=== PATIENT | male | born 1955 | race Caucasian/White ===

== ENCOUNTER 2018-05-27 16:45 | Emergency (ER) | payer MEDICARE ==
[~2018-05-27] VITALS: Ht 170.1 cm; Wt 77.1 kg
--- NOTE | ~2018-05-27 | EKG ---
[place], [place] ELECTROCARDIOGRAM REPORT NAME: JOSE DE LEON UNIT #: [id number] ROOM: DOCTOR: DEBBIE DRAFT REPORT BIRTHDATE: [birth year] [facility] Test Date: 2018-05-27 Test Time: 16:49:56 Pat Name: JOSE DE LEON Department: Room: Gender: [employer]: : [id number] Requested By: ARLEY RANGEL Order Number: [id number] Reading MD: Richie Srinivasan Measurements Intervals [place] Rate: 83 P: 59 OK: 156 QRS: 38 QRSD: 91 T: 57 QT: 369 QTc: 434 Interpretive Statements Sinus rhythm No previous ECG available for comparison Electronically Signed On 05-28-2018 11:00:25 PDT by Richie Srinivasan CM:EKGRPT:ELECTROCARDIOGRAM REPORT [id number] ARLEY LWEIS DRAFT REPORT ARLEY RANGEL M.D.
[~2018-05-27 16:45] MED LIST: ANUSOL-HC25 MG RC; BP MED; CEFADROXIL500 M1 PO; CIPRO500 MG PO; DILANTIN100 MG PO; FLEXERIL5 MG PO; Fioricet 325 MG1 TAB PO; IBUPROFEN 30 M800 MG PO; MOTRIN800 MG PO; PEN-VEE K500 MG PO; TRAMADOL HCL50 MG PO; TYLENOL W/CODEI1 TA2 PO; [UNRECOGNIZED DRUG - OTHER] T
[2018-05-27 17:01] LABS: HEMATOCRIT 38.8 % (42.0-52.0); HEMOGLOBIN 12.5 g/dl (14.0-18.0); MEAN CELL VOLUME 98.5 fl (80.0-94.0); MEAN CORPUSCULAR HGB 31.7 pg (27.0-31.0); MEAN CORPUSCULAR HGB CONC 32.2 g/dl (33.0-37.0); MEAN PLATELET VOLUME 8.7 fl (9.6-12.3); PLATELET COUNT AUTOMATED 500 10*3/uL (130-400); RED BLOOD COUNT 3.94 10*6/uL (4.50-5.90); RED CELL DISTRI WIDTH 13.6 % (0-14.5); WHITE BLOOD COUNT 13.3 10*3/uL (4.8-10.8)
[2018-05-27 17:11] LABS: ACT PARTIAL THROMBO TIME 24.4 SECONDS (20.8-31.5); INTERNATIONAL NORM RATIO 0.9 (2.0-3.5)
[2018-05-27 17:18] LABS: ALBUMIN 3.5 gm/dl (3.1-4.5); ALKALINE PHOSPHATASE 74 U/L (45-117); BUN 20 mg/dl (7-24); CHLORIDE 107 mmol/L (98-107); POTASSIUM 4.1 mmol/L (3.5-5.1); SGOT/AST 20 IU/L (3-35); SGPT/ALT 25 U/L (12-78); SODIUM 139 mmol/L (136-145); TOTAL PROTEIN 8.5 gm/dL (6.4-8.2)
[2018-05-27 17:20] LABS: TROPONIN I < 0.015 ng/ml (<0.045)
[2018-05-27 17:23] LABS: TOTAL CELLS COUNTED 100 #CELLS
[2018-05-27 17:24] LABS: PLATELET SUFFICIENCY HIGH (NORMAL)
[2018-05-27] MEDS ORDERED: DILANTIN100 MG PO (19:10)
== END 2018-05-27 19:25 | disposition home or self-care (01) ==
LOC: ED 16:45
PROVIDERS: Emergency Medicine
DX: G40.909 Epilepsy, unspecified, not intractable, without status epilepticus (principal); R55 Syncope and collapse; Z91.041 Radiographic dye allergy status; Z79.899 Other long term (current) drug therapy

== ENCOUNTER 2020-10-13 06:24 | Emergency (ER) | payer OTHER ==
[2020-10-13] VITALS (7 sets, daily range): BP systolic 122–152; BP diastolic 66–84
[2020-10-13 06:46] LABS: ARTERIAL BLOOD GAS PO2 169.4 (80-90)
[2020-10-13 06:49] LABS: INTERNATIONAL NORM RATIO 1.2 (2.0-3.5); MEAN CELL VOLUME 111.8 fl (80.0-94.0); MEAN CORPUSCULAR HGB 29.4 pg (27.0-31.0); MEAN CORPUSCULAR HGB CONC 26.3 g/dl (33.0-37.0); MEAN PLATELET VOLUME 9.4 fl (9.6-12.3); NUCLEATED RED BLOOD CELL 2.9 % (0.0-0.0); PLATELET COUNT AUTOMATED 646 10*3/uL (130-400); RED BLOOD COUNT 1.02 10*6/uL (4.50-5.90); RED CELL DISTRI WIDTH 16.1 % (0-14.5); WHITE BLOOD COUNT 34.7 10*3/uL (4.8-10.8)
[2020-10-13 06:52] LABS: ABG BASE EXCESS -25.7 mmol/L (-2.0-2.0); ARTERIAL BLOOD GAS PH 6.724 (7.35-7.45)
[2020-10-13 06:53] LABS: ALBUMIN 1.3 gm/dl (3.1-4.5); CREATININE 1.81 mg/dL (0.70-1.30); HEMATOCRIT 11.4 % (42.0-52.0); POTASSIUM 3.5 mmol/L (3.5-5.1); TOTAL PROTEIN 6.2 gm/dL (6.4-8.2)
[2020-10-13 07:16] LABS: TROPONIN I 1.49 ng/ml (<0.045)
[2020-10-13 07:18] LABS: TOTAL CELLS COUNTED 100 #CELLS
[2020-10-13 07:20] LABS: PLATELET SUFFICIENCY HIGH (NORMAL); POLYCHROMASIA SLIGHT
[2020-10-13 09:01] LABS: BILIRUBIN Negative (Negative); BLOOD Negative (Negative); CLARITY Clear (Clear); COLOR Yellow (Yellow); GLUCOSE Negative (Negative); KETONE Negative (Negative); LEUKO ESTERASE Negative (Negative); NITRITE Negative (Negative); PH 5.5 (4.5-8.0); SPECIFIC GRAVITY 1.015 (1.001-1.030); UROBILINOGEN 0.2 E.U./dl (0.0-1.0)
[2020-10-13 09:06] LABS: BACTERIA 2+; HYALINE CAST 0-2; RBC 0-2 rbc/hpf (0-2)
== END 2020-10-13 09:12 | disposition short-term general hospital (02) ==
LOC: ED 06:24
PROVIDERS: Emergency Medicine
DX: I46.9 Cardiac arrest, cause unspecified (principal); D64.9 Anemia, unspecified; Z91.041 Radiographic dye allergy status; Z79.899 Other long term (current) drug therapy